=== PATIENT | female | born 1970 | race Caucasian/White ===

== ENCOUNTER 2018-03-27 12:19 | Emergency (ER) | payer OTHER ==
[2018-03-27 14:42] VITALS: BP 155/103
--- NOTE | 2018-03-27 17:15 | ED ---
Skin Complaint - HPI Summary HPI Summary: Pt. is a 47y.o who presents to the ER for swelling and itching to her inner right ankle x 2 days. Pt. states she was outside over the weekend and sustained a few insect bites to her right inner ankle. States she did have some to her left ankle but they have improved. Pt. states she has been scratching right ankle and subsequently ankle became swollen and painful. Symptoms are mild in severity. Touching affected area makes symptoms worse. Nothing makes symptoms better. Pt. denies any injury otherwise. No significant past medical history. - History of Current Complaint Chief Complaint: EDExtremityLower Time Seen by Provider: 03/27/18 13:46 Stated Complaint: BOTH LEGS HAVE PAIN/SENSATION Hx Obtained From: Patient Pain Intensity: 0 Pain Scale Used: 0-10 Numeric - Allergy/Home Medications Allergies/Adverse Reactions: Allergies Allergy/AdvReac Type Severity Reaction Status Date / Time No Known Allergies Allergy Verified 03/27/18 12:26 PMH/Surg Hx/FS Hx/Imm Hx Previously Healthy: Yes - Cancer History Hx Chemotherapy: No Hx Radiation Therapy: No Infectious Disease History: No Infectious Disease History: Denies: Traveled Outside the [place] in Last 30 Days - Family History Known Family History: Positive: Hypertension - Social History Alcohol Use: Weekly Alcohol Amount: 2x per week Substance Use Type: Reports: None Smoking Status (MU): Light Every Day Tobacco Smoker Review of Systems Constitutional: Negative Positive: Other - Itching and swelling to right inner ankle Positive: Other - Insect bites to right ankle All Other Systems Reviewed And Are Negative: Yes Physical Exam Triage Information Reviewed: Yes Vital Signs On Initial Exam: Initial Vitals Temp Pulse Resp BP Pulse Ox 98.2 F 102 19 154/93 98 03/27/18 12:23 03/27/18 12:23 03/27/18 12:23 03/27/18 12:23 03/27/18 12:23 Vital Signs Reviewed: Yes Appearance: Positive: Well-Appearing - Pt. sitting on bed in NAD. Skin: Positive: Warm, Dry Head/Face: Positive: Normal Head/Face Inspection Eyes: Positive: Normal Neck: Positive: Supple Musculoskeletal: Positive: Other - 2 insect bites notes to the right medial ankle with mild localized erythema. Mild surrounding edema. No surrounding erythema. No fluctuance or induration. Neurological: Positive: Normal, CN Intact II-III Psychiatric: Positive: Affect/Mood Appropriate Diagnostics - Vital Signs Vital Signs Temp Pulse Resp BP Pulse Ox 03/27/18 14:39 97.3 F 84 17 155/103 100 03/27/18 12:23 98.2 F 102 19 154/93 98 - Laboratory Lab Statement: Any lab studies that have been ordered have been reviewed, and results considered in the medical decision making process. Course/Dx - Course Course Of Treatment: Pt. presenting for insect bites with localized reaction to right inner ankle. No signs of infection or abscess. Hydrocortisone cream rx. Advised cool compresses and NSAIDS. To f.u with PCP or return to ER for redness , swelling, drainage, fever. Pt. understands and agrees with plan. - Differential Diagnoses - Skin Complaint Differential Diagnoses: Abscess, Eczema, Poison Tara, Poison [place], Scabies, Tinea , Urticaria - Diagnoses Provider Diagnoses: Insect bite Discharge - Sign-Out/Discharge Documenting (check all that apply): Discharge/Admit/Transfer - Discharge Plan Condition: Good Disposition: HOME Prescriptions: Hydrocortisone 1% CREAM* [Hytone Cream 1%*] 1 applic TOPICAL BID #1 tube Patient Education Materials: Insect Bite or Sting (ED) Forms: *Work Release Referrals: Sanjuanita Bailey MD [Primary Care Provider] - Additional Instructions: Follow up with PCP if symptoms persist Apply cream as directed Apply cool compresses Can take benadryl for itching as directed Can take motrin as directed for inflammation Return to ER for increased redness, swelling, drainage or if concerned - Billing Disposition and Condition Condition: GOOD Disposition: Home
== END 2018-03-27 14:39 | disposition home or self-care (01) ==
LOC: ED 12:19
DX: S90.561A Insect bite (nonvenomous), right ankle, initial encounter (principal); F17.210 Nicotine dependence, cigarettes, uncomplicated; R60.0 Localized edema; W57.XXXA Bitten or stung by nonvenomous insect and other nonvenomous arthropods, initial encounter; Y92.9 Unspecified place or not applicable
CPT/HCPCS: 99282

== ENCOUNTER 2019-07-09 09:30 | Emergency (ER) | payer OTHER ==
--- OUTSIDE RECORDS SUMMARY | 2019-07-09 09:35 | XMS REPORT | Continuity of Care Document ---
:1970 External Reference #:[id number] Author Name Yuri Morgan MD (transmitted by agent of provider Mariana Sloan) Address [address] [place] [address] Care Team Providers Name Role Phone Sanjuanita Bailey MD - Internal Care Team Information Glass Blowing Instructor Medicine Mesha Myrick MD - Gastroenterology Care Team Information Glass Blowing Instructor Problems Description No Information Available Social History Type Date Description Comments Sex Unknown Tobacco Use Start: Unknown Light tobacco smoker (10 or fewer cigarettes/day) Smoking Status Reviewed: 06/14/19 Light tobacco smoker (10 or fewer cigarettes/day) ETOH Use Occasionally consumes alcohol Tobacco Use Start: Unknown Patient is a current smoker, smokes every day Recreational Drug Use Never Used Drugs Exercise Type/Frequency Exercises sporadically Allergies, Adverse Reactions, Alerts Description No Known Drug Allergies Medications Active Medications SIG Qnty Indications Ordering Provider Date Alprazolam 1 tablet at Unknown 0.25mg Tablets bedtime and as needed for anxiety Buspirone HCL 1 by mouth 3 Unknown 5mg Tablets times daily, has not really been taking Vitamin D3 1 by mouth every Unknown 2000Unit day Capsules Vitamin B12 1 by mouth every Unknown 1000mcg day Tablets ER Magnesium Oxide 1 by mouth once Unknown 400mg daily Capsules Iron 100/C 1 by mouth once a Unknown 100-250mg day Tablets Immunizations Description No Information Available Vital Signs Date Vital Result Comment 06/14/2019 9:06am Height 64 inches 5'4" Weight 125.00 lb Heart Rate 91 /min BP Systolic 114 mmHg BP Diastolic 79 mmHg BMI (Body Mass Index) 21.5 kg/m2 Results Description No Information Available Procedures Description No Information Available Medical Devices Description No Information Available Encounters Description No Information Available Assessments Date Code Description Provider 06/14/2019 E21.0 Primary hyperparathyroidism Yuri Morgan MD Plan of Treatment Future Appointment(s):08/08/2019 9:20 am - Yuri Morgan MD at [facility]06/14/2019 - Yuri Morgan MDE21.0 Primary hyperparathyroidismNew Xrays:US Thyroid, Ordered: 06/14/19NM Parathyroid W/ Spect, Ordered: 06/14/19Referral:Annie Sotelo MD, Surgery,GeneralFollow up:3 monthsInstructions:1. Blood tests today. 2. We will contact you to schedule thyroid and parathyroid scans. 3. Collect urine for 24 hours and return specimen to the lab. 4. I recommend an appointment with a parathyroid surgeon to discuss removal of parathyroid adenoma. 5. Return in 3 months. Functional Status Description No Information Available Mental Status Description No Information Available Referrals Refer to Reason for Referral Status Appt Date Annie Sotelo MD hyperparathyroidism [facility] [address] [facility] [address] [place], [place] [address] [phone]
[2019-07-09 09:46] VITALS: BP 124/89
--- NOTE | 2019-07-09 09:49 | UC ---
Hand/Wrist HPI - HPI Summary HPI Summary: A 49-year-old female presenting with left thumb pain, bruising, swelling, and numbness x 2 days after smashing it with a glass bottle. She says the bottle did not break. She is able to move her thumb still notes tingling and increased pain when it is touched. Notes small abrasion on the thumb. She is concerned that it may be broken. Denies hand pain. Patient is right-handed. - History Of Current Complaint Chief Complaint: UCUpperExtremity Stated Complaint: THUMB INJURY Hx Obtained From: Patient Onset/Duration: Sudden Onset Pain Intensity: 0 - Allergies/Home Medications Allergies/Adverse Reactions: Allergies Allergy/AdvReac Type Severity Reaction Status Date / Time No Known Allergies Allergy Verified 07/09/19 09:47 Home Medications: Home Medications ALPRAZolam TAB* [Xanax TAB*] 0.25 mg PO Q6H PRN 07/09/19 [History Confirmed ] PMH/Surg Hx/FS Hx/Imm Hx - Surgical History Surgical History: Yes Surgery Procedure, Year, and Place: breast biopsies - Family History Known Family History: Positive: Hypertension - Social History Alcohol Use: Weekly Alcohol Amount: 2x per week Substance Use Type: Marijuana Smoking Status (MU): Light Every Day Tobacco Smoker Type: Cigarettes Amount Used/How Often: 7-8 cig per day Review of Systems All Other Systems Reviewed And Are Negative: No Constitutional: Positive: Negative. Negative: Fever, Chills Skin: Positive: Bruising, Other - abrasion on thumb Respiratory: Positive: Negative Cardiovascular: Positive: Negative Gastrointestinal: Positive: Negative. Negative: Vomiting, Nausea Musculoskeletal: Positive: Arthralgia, Edema. Negative: Decreased ROM Neurological: Positive: Paresthesia, Numbness. Negative: Weakness Physical Exam Triage Information Reviewed: Yes Appearance: Well-Appearing, No Pain Distress, Well-Nourished Vital Signs: Initial Vital Signs Temp 98.8 F 07/09/19 09:43 Pulse 100 07/09/19 09:43 Resp 16 07/09/19 09:43 BP 124/89 07/09/19 09:43 Pulse Ox 100 07/09/19 09:43 Vital Signs Reviewed: Yes Eyes: Positive: Conjunctiva Clear ENT: Positive: Hearing grossly normal Neck: Positive: Supple Cardiovascular: Positive: Pulses Normal - strong radial pulses bilaterally, Brisk Capillary Refill Musculoskeletal: Positive: Strength Intact, ROM Intact, Edema @ - entire left thumb, Other: - pain to palpation of IP joint Neurological: Positive: Alert Psychological: Positive: Age Appropriate Behavior Skin: Positive: Other - significant ecchymosis of left thumb. small 3mm nonbleeding abrasion on dorsal left thumb Diagnostics - Radiology left thumb Radiology Interpretation Completed By: Radiologist Summary of Radiographic Findings: FINDINGS: There is soft tissue swelling at the interphalangeal joint and adjacent to the distal phalanx The bones are in normal alignment. No fracture is seen. Joint spaces appear maintained. IMPRESSION: NO EVIDENCE FOR FRACTURE, IF THE PATIENT'S SYMPTOMS PERSIST RECOMMEND FOLLOW-UP IMAGING. Hand/Wrist Course/Dx - Course Course Of Treatment: Discussed negative x-rays with patient. Instructed her to continue symptomatic treatment for pain rest, heat, warm soaks, and [id number] pain medications as directed. Instructed to follow up with PCP or ortho if pain persists. Patient voiced understanding and agreed to treatment plan. - Differential Dx/Diagnosis Provider Diagnosis: Contusion of left thumb Discharge ED - Sign-Out/Discharge Documenting (check all that apply): Patient Departure All imaging exams completed and their final reports reviewed: Yes - Discharge Plan Condition: Stable Disposition: HOME Forms: *Work Release Referrals: Sanjuanita Bailey MD [Primary Care Provider] - If Needed Shawn Guerrero MD [Medical Doctor] - Additional Instructions: As discussed, the xrays of your thumb did not show any fractures. You may continue to rest the thumb and use ice, heat, and warm soaks to help relieve pain. You may take over the counter pain medication as directed for pain relief. If your pain persists, follow up with your PCP or orthopedics as listed below. Go to the emergency room if you notice increased swelling, inability to move your thumb, or you experience severe pain. - Billing Disposition and Condition Condition: STABLE Disposition: Home
== END 2019-07-09 10:40 | disposition home or self-care (01) ==
LOC: UCEAST 09:30
DX: S60.012A Contusion of left thumb without damage to nail, initial encounter (principal); F17.210 Nicotine dependence, cigarettes, uncomplicated; X58.XXXA Exposure to other specified factors, initial encounter; Y92.9 Unspecified place or not applicable
CPT/HCPCS: 99211; G0463

== ENCOUNTER 2019-09-06 07:54 | Day surgery (SDC) | payer OTHER ==
--- NOTE | 2019-08-29 17:56 | HP ---
CC: Dr. Bailey * PREOPERATIVE HISTORY AND PHYSICAL: DATE OF ADMISSION/SURGERY: 09/06/19 This patient is scheduled for same-day surgery admission by Dr. Annie Sotelo on , 09/06/19. DATE OF PREOPERATIVE HISTORY AND PHYSICAL EXAMINATION: 08/29/19. ATTENDING SURGEON: Dr. Annie Sotelo * (dictated by Sirena Coronado NP). CHIEF COMPLAINT: Primary hyperparathyroidism. HISTORY OF PRESENT ILLNESS: The patient is a 49-year-old female with a history of anemia, anxiety, and bipolar disorder, who presents with a history of hypercalcemia dating back to 2014. She has been seen by Dr. Morgan and diagnosed with primary hyperparathyroidism. The patient states that she only recently discovered that she had elevated calcium levels and was told by her primary care provider Dr. Bailey. She has baseline anxiety, but denies other neuropsychiatric symptoms such as insomnia and increasing forgetfulness. She has never had neck surgery or radiation to her chest. There are no endocrine disorders in her family. She has never had any broken bones and had one episode of kidney stones. Dr. Sotelo performed ultrasound in the office and noticed a right parathyroid adenoma and a right lower thyroid nodule measuring 15 mm. The patient underwent biopsy of the right lower thyroid nodule on and the pathology report is pending. She also underwent a nuclear medicine parathyroid study, which revealed somewhat asymmetric radioiodine uptake on the right, which may indicate the presence of a hot right thyroid nodule, no abnormal radiotracer uptake to suggest parathyroid adenoma. She also had an ultrasound of the thyroid gland at [facility], which revealed a 1.1 cm round hypoechoic structure seen deep to the right inferior pole of the thyroid likely regional sales representative of parathyroid tissue. Dr. Sotelo reviewed the findings with the patient and has recommended parathyroidectomy as she meets criteria. Dr. Sotelo explained the etiology of primary hyperparathyroidism and discussed the surgical management. She explained the surgery in detail and discussed at length the risks, benefits, and alternatives. I also reviewed the typical postoperative care and recovery. The patient has had a chance to ask questions and stated that she understands the information and is satisfied with the answers given to her questions. She will sign surgical consent on the day of surgery. PAST MEDICAL HISTORY: Significant for anemia, anxiety and depression, bipolar disorder, hypercalcemia. PAST SURGICAL HISTORY: Benign left breast biopsy many years ago, uterine ablation for heavy periods 6 or 7 years ago and she has not had a period since then. MEDICATIONS: 1. Alprazolam 0.25 mg 1 tablet at bedtime and as needed for anxiety. 2. Iron supplement with vitamin C 100/250 mg 1 tablet p.o. daily. 3. Vitamin B12 1000 mcg p.o. daily. 4. Vitamin D3 2000 International Units p.o. daily. ALLERGIES: No known drug allergies. FAMILY HISTORY: No known endocrine disorders; no known anesthesia complications , bleeding tendencies, or clotting disorders. SOCIAL HISTORY: She is single and lives with her son; she smokes half a pack of cigarettes daily. She occasionally consumes alcohol and denies the use of other substances. REVIEW OF SYSTEMS: Constitutional: No fevers, chills, excessive fatigue, or weight loss. Endocrine: Primary hyperparathyroidism as described in history of present illness. No diabetes. Hematologic: No easy bruising or bleeding. She does have a history of anemia and has had blood transfusions 6 or 7 years ago. Breasts: No abnormalities reported. Respiratory: No dyspnea on exertion or chronic cough. Cardiovascular: No anginal chest pain or palpitations. Gastrointestinal: No nausea, vomiting, diarrhea, GI bleeding, constipation, or change in bowel habits. Genitourinary: No dysuria. Musculoskeletal: Normal strength and tone. Integumentary: No chronic rashes. Neurologic: No headache or blurred vision. Psychiatric: History of anxiety and depression; history of bipolar disorder; today she is very tearful and anxious. General: No history of deep vein thrombosis or pulmonary embolism. No anesthesia complications. The patient has received blood transfusions to treat anemia 6 or 7 years ago. PHYSICAL EXAMINATION GENERAL SURVEY: The patient is a 49-year-old female, well developed, well nourished, in no acute distress. VITAL SIGNS: Height 64 inches, weight 131 pounds, body mass index 22.5. Blood pressure 124/82, pulse 90 and regular, respiratory rate 16, temperature 98 tympanic. HEENT: Benign. NECK: Supple. No cervical lymphadenopathy. No thyromegaly. No palpable masses, anterior neck. LUNGS: Breath sounds bilaterally clear and equal. HEART: Regular rate and rhythm. No murmurs or rubs appreciated. ABDOMEN: Active bowel sounds. Soft, nondistended, nontender throughout. No obvious masses, organomegaly, or ventral hernia. BACK: No CVA tenderness. PELVIC: Exam deferred. RECTAL: Exam deferred. EXTREMITIES: Warm without edema or skin ulceration. NEUROLOGIC: Alert and oriented x3. Steady gait. SKIN: Warm, dry, intact. IMPRESSION: Primary hyperparathyroidism. PLAN: Same-day surgery admission to Dr. Annie Sotelo's service on , 09/06, for parathyroidectomy. We will review her recent EKG and compare it with the EKG that was done in Dr. Bailey's office on 08/20/19, which was borderline abnormal with possible LVH and we will determine with the help of Dr. Bailey if a preoperative echocardiogram is indicated. MORENITA CORONADO, HOME CARE AIDE [id number]/[facility] #: [id number] NIKI
[~2019-09-06 07:54] MED LIST: Buffered Lidocaine 1% SYRIN* 1 ML/SYRINGE INTRADERM ONE; Dexamethasone IV* 4 MG/ML 1 ML (4 MG) IV SLOW PU ONE; Famotidine IV* 10 MG/ML 2 ML (20 mg) IV ONE; Lactated Ringers 1000 ML Bag* 1,000 ML IV SCH
[2019-09-06] MEDS ORDERED: Dexamethasone IV* 4 MG/ML 1 ML (4 MG) ONE (08:20)
[2019-09-06] MEDS ORDERED: Famotidine IV* 10 MG/ML 2 ML (20 mg) ONE (08:22)
[2019-09-06] MEDS ORDERED: Buffered Lidocaine 1% SYRIN* 1 ML/SYRINGE INTRADERM ONE (08:22)
[2019-09-06] MEDS ORDERED: fentaNYL* 50 MCG/ML 2 ML VIAL (100 MCG VIAL) IV PRN (11:18)
[2019-09-06] MEDS ORDERED: oxyCODONE/Acetamin 5/325 MG* TAB PO PRN (11:18)
[2019-09-06] MEDS ORDERED: HYDROcodone/ACETAMIN 5-325 MG* 1 TAB PO PRN (11:18)
[2019-09-06] MEDS ORDERED: DiMENhydriNATE IV* 50 MG/ML VIAL IV PUSH PRN (11:18)
[2019-09-06] MEDS ORDERED: Naloxone* 0.4 MG/ML 1 ML VIAL IV PRN (11:18)
[2019-09-06] MEDS ORDERED: Succinylcholine* 20 MG/ML 10 ML VIAL ONE (12:16)
[2019-09-06] MEDS ORDERED: fentaNYL* 50 MCG/ML 2 ML VIAL (100 MCG VIAL) ONE ×2 (12:16→14:46)
[2019-09-06] MEDS ORDERED: Propofol* 10 MG/ML 20 ML BTL ONE (12:16)
[2019-09-06] MEDS ORDERED: Midazolam* 1 MG/ML 5 ML VIAL (5 MG) ONE (12:16)
[2019-09-06] MEDS ORDERED: Lidocaine 2% PF * 5 ML VIAL ONE (12:17)
[2019-09-06] MEDS ORDERED: Lidocaine 1% INJ* 10 MG/ML 30 ML SDV ONE (12:30)
[2019-09-06] MEDS ORDERED: Bupivacaine 0.25% SDV* 30 ML ONE (12:30)
[2019-09-06] MEDS ORDERED: KETAMINE HCL* 50 MG/ML 10 ML VIAL ONE (12:52)
[2019-09-06] MEDS ORDERED: Ondansetron INJ* 2 MG/ML VIAL ONE (13:59)
[2019-09-06] MEDS ORDERED: Bacitracin OINTMENT* 0.5% 0.5 oz TUBE ONE (14:14)
[2019-09-06 18:07] VITALS: BP 175/116
--- NOTE | 2019-09-06 22:37 | OP ---
CC: Dr. Bailey; Dr. Yuri Morgan * DATE OF OPERATION: 09/06/19 - [facility] DATE OF : 72 SERVICE: General Surgery. SURGEON: Annie Sotelo MD SANITARY INSPECTOR: Sirena Giraldo NP ANESTHESIOLOGIST: Dr. Derrick Chen. PRE-OP DIAGNOSIS: Primary hyperparathyroidism. POST-OP DIAGNOSIS: Primary hyperparathyroidism. OPERATIVE PROCEDURE: Right lower parathyroidectomy. INDICATIONS: Ms. Childers is a very pleasant 49-year-old female with history of primary hyperparathyroidism. Given her young age, she was determined to be an appropriate candidate for parathyroidectomy. Preoperative localization studies identified a right lower parathyroid adenoma, although her sestamibi was negative for any adenomas. She gave informed consent for parathyroidectomy and she understood that the risks included, but were not limited to, bleeding, infection, injury to nearby structures such as the recurrent laryngeal nerve. She understood the alternatives and benefits and she wished to proceed. ESTIMATED BLOOD LOSS: Minimal, less than 10 cc. SPECIMEN: Right lower parathyroid. DESCRIPTION OF PROCEDURE: The patient was brought back to the operating room and placed on the operating table in the supine position. Sequential compression devices were placed on bilateral lower extremities for DVT prophylaxis. No antibiotics were administered. General endotracheal anesthesia was induced. The electrodes for nerve monitor were attached. A time -out was performed prior to administering local anesthesia to the neck, which consisted of 1% lidocaine and 0.25% Marcaine mixed equally. After this, the neck was prepped and draped in normal sterile fashion and a second time-out was performed prior to beginning the operation which confirmed the patient's name, date of , and the procedure to be performed. Next, an approximately 4-cm incision was made in natural crease line 2 fingerbreadths above the sternal notch. The skin was divided down to the subcutaneous tissue. The platysma was divided and then the inferior and superior subplatysmal flaps were developed. The median raphe between the strap muscles was identified and the strap muscles were retracted laterally off the isthmus of the thyroid. Once this was done, the strap muscles were retracted laterally off the right thyroid lobe. Given that her thyroid ultrasound had showed an enlarged right lower parathyroid gland , attention was turned towards on the right side. Two peanuts were used to retract the right thyroid lobe out of the neck. There was a soft round thyroid nodule that she had had had biopsied previously that was easily apparent. Once the thyroid lobe was rotated anteriorly and medially, the strap muscles were retracted laterally, the right lower parathyroid was identified quite easily at the right lower pole. The right upper parathyroid was also identified and it appeared to be normal. The right lower parathyroid was dissected out of its surrounding areolar tissue, the vascular pedicle was ligated and at that point, serial PTH values were obtained. The baseline PTH value had been obtained in the preoperative holding area and then T0, T5, and T10 were subsequently taken after the vascular pedicle of the parathyroid was divided. These numbers resulted as baseline at 124, time 0 was 95.3, time 5 was 47.3, and time 10 was 31.3. Given that [place] criterion was met, the operation was determined to be concluded. However, while we were awaiting the values, the contralateral side was also explored given that the patient did have a negative sestamibi scan despite a mildly enlarged right lower parathyroid gland on ultrasound. On the left side, the strap muscles were retracted laterally off the thyroid lobe and the left thyroid lobe was retracted medially and anteriorly using 2 peanuts. The left upper parathyroid gland was noted in its normal anatomical position and appeared to be normal. The left lower parathyroid gland was thought to be seen just at the left lower pole in the similar anatomic position to where the right lower parathyroid gland was noted. After this was done and the PTH numbers were confirmed, attention was turned towards closure and hemostasis was obtained in the neck. Tisseel was placed. The strap muscles were reapproximated using interrupted 4-0 Vicryl sutures. The platysma was reapproximated using 4-0 Vicryl sutures and the skin was closed using a running 4-0 Monocryl. Sterile dressing was in place. The patient's anesthesia was reversed and she was taken to the PACU in stable condition. At the end of the case, all counts were correct and I was present during the entirety of the case. [id number]/[facility] #: [id number] [facility]ITALChu
== END 2019-09-06 19:20 | disposition home or self-care (01) ==
LOC: OR 07:54
PROVIDERS: ATTEND Surgery
DX: E21.0 Primary hyperparathyroidism (principal); D35.1 Benign neoplasm of parathyroid gland; F41.8 Other specified anxiety disorders; F31.9 Bipolar disorder, unspecified; F17.210 Nicotine dependence, cigarettes, uncomplicated
CPT/HCPCS: 36415; 81025; 83970; 88305; A9270-GY; C1776; J0330; J1100; J2250; J2405; J2704; J3010; J3490

== ENCOUNTER 2024-04-05 08:21 | Inpatient (IN) ==
[2024-04-05] MEDS: Iodixanol (CONTRAST) 320 MG/ML 100 ML SDV IV ONE (08:42)
[2024-04-05 08:49] LABS: Activated Partial Thrombo Time 35.3 seconds (26.0-38.0); INR 0.95 (0.83-1.13)
[2024-04-05 08:51] LABS: Hematocrit 47.6 % (35-45); Hemoglobin 15.5 g/dL (11.5-14.3); Mean Corpuscular Hemoglobin 28.9 pg (27-33); Mean Corpuscular Hgb Conc 32.7 g/dL (31-36); Mean Corpuscular Volume 88.5 fL (80-97); Red Blood Count 5.38 10^6/uL (3.63-4.92); Red Cell Distribution Width 15.8 % (12-17); White Blood Count 7.4 10^3/uL (3.8-11.8)
[2024-04-05 08:53] LABS: Albumin 4.5 g/dL (3.2-5.2); Calcium 10.1 mg/dL (8.6-10.3); Creatinine, Serum 0.84 mg/dL (0.51-0.95); Direct Bilirubin 0.1 mg/dL (0.03-0.18); Globulin 4.6 g/dL (2-4); HDL Cholesterol 49.5 mg/dL; Indirect Bilirubin 0.8 mg/dL (0.3-1.0); Potassium 3.8 mmol/L (3.5-5.0); Total Bilirubin 0.9 mg/dL (0.2-1.0); Total Protein 9.1 g/dL (6.4-8.9); eGFR CKD-EPI 83.6 (>60)
[2024-04-05] MEDS ORDERED: LORazepam 2 MG/ML 1 mL Syringe IV ONE (08:57)
[2024-04-05] MEDS ORDERED: Lorazepam PYXIS KEY PRN (09:05)
[2024-04-05 09:14] LABS: ABS Basophils 0.1 10^3/uL (0.0-0.1); ABS Eosinophils 0.3 10^3/uL (0.0-0.5); ABS Lymphocytes 2.3 10^3/uL (1.0-4.8); ABS Monocytes 0.9 10^3/uL (0.0-0.9); ABS Neutrophils 3.8 10^3/uL (1.5-7.6); ABS Nucleated RBC 0.01 10^3/ul; Eosinophil % 4.6 %; Lymphocyte % 31.6 %; Mean Platelet Volume 9.9 fL (7.5-11.2); Nucleated Red Blood Cells % 0.1 %/100WBC (0.0-0.8); Platelet Count 182 10^3/uL (150-450)
[2024-04-05 09:56] LABS: Urine Appearance Clear; Urine Bilirubin Negative (Negative); Urine Blood Negative (Negative); Urine Color Light-Yellow; Urine Glucose Negative (Negative); Urine Ketones Negative (Negative); Urine Nitrite Negative (Negative); Urine Protein Negative (Negative); Urine Specific Gravity 1.034 (1.002-1.030); Urine Urobilinogen Negative (Negative); Urine pH 6.5 (5.0-8.0)
[2024-04-05] MEDS: LORazepam 2 mg VIAL 1 ml IV PUSH ONE (09:59)
[2024-04-05] MEDS: Enoxaparin 40 MG/0.4 ML SYR SUBCUT SCH (11:57)
[2024-04-06] MEDS: Sulfur Hexaflouride MICROSPHR 25 MG VIAL IV ONE (10:36)
[2024-04-06 17:54] VITALS: BP 147/102
== END 2024-04-06 18:05 | disposition home or self-care (01) | DRG 45 ==
LOC: ED 08:21 → EDHOLD 10:33 → MEDTELE 17:39
PROVIDERS: ADMIT Hospitalist; ATTEND Internal Medicine Hematology & Oncology